=== PATIENT | female | born 2000 | race Caucasian/White ===

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

== ENCOUNTER 2019-09-06 09:25 | Outpatient (CLI) | payer OTHER, MEDICAID ==
[~2019-09-06] VITALS: Ht 175.3 cm; Wt 138.9 kg
--- NOTE | 2019-09-06 09:01 | NUR ---
WESTON CORREA presented to unit via AMBULATORY, with c/o VOMITTING, BLOATING, TIGHTNESS IN CHEST. WESTON CORREA weighed, gowned, voided, and to bed. VS taken. WESTON CORREA oriented to bed controls, call light, TV, heat, and A/C controls.
[~2019-09-06 09:25] MED LIST changes: +DOCU100C37 PO; +OXYC1TAB12 PO
--- NOTE | 2019-09-06 09:26 | NUR ---
DR. BENZ'S OFFICE CALLED, DR JAGDEEP MASCORRO. WILL CALL BACK FOR ORDERS.
--- NOTE | 2019-09-06 09:37 | NUR ---
DR. BENZ CALLED BACK, ORDERS RECEIVED.
[2019-09-06] MEDS ORDERED: D5 LR IV SOLUTION 1,000 ML IV SCH (09:45)
[2019-09-06] MEDS ORDERED: ONDANSETRON 4 MG/2 ML (SDV) Z0FRAN IVP ONE (09:45)
[2019-09-06] MEDS ORDERED: D5 LR IV SOLUTION 1,000 ML IV ONE (09:45)
[2019-09-06 10:01] VITALS: BP 121/79
--- NOTE | 2019-09-06 10:45 | NUR ---
PT TRANSFERRED OFF UNIT IN STABLE CONDITION VIA W/C ACC BY U/S STAFF.
[2019-09-06 10:57] LABS: BASOPHILS % (AUTO) 0 % (0-10); EOSINOPHILS % (AUTO) 0 % (0-10); HEMATOCRIT 39 % (35-52); HEMOGLOBIN 12.6 G/DL (11.5-16.0); LYMPHOCYTES # (AUTO) 1.5 X 10^3 (1.0-4.0); LYMPHOCYTES % (AUTO) 16 % (12-44); MEAN CORPUSCULAR HEMOGLOBIN 24 PG (25-34); MEAN CORPUSCULAR HGB CONC 33 G/DL (32-36); MEAN CORPUSCULAR VOLUME 73 FL (80-99); MONOCYTES # (AUTO) 0.4 X 10^3 (0.0-1.0); MONOCYTES % (AUTO) 5 % (0-12); NEUTROPHILS # (AUTO) 7.2 X 10^3 (1.8-7.8); NEUTROPHILS % (AUTO) 79 % (42-75); PLATELET COUNT 241 10^3/uL (130-400); RED CELL DISTRIBUTION WIDTH 15.6 % (10.0-14.5); WHITE BLOOD COUNT 9.2 10^3/uL (4.3-11.0)
[2019-09-06 10:58] LABS: BILIRUBIN,URINE NEGATIVE (NEGATIVE); CLARITY,URINE CLEAR; COLOR,URINE YELLOW; GLUCOSE, URINE (UA) NEGATIVE (NEGATIVE); KETONES,URINE NEGATIVE (NEGATIVE); LEUKOCYTE ESTERASE ,URINE NEGATIVE (NEGATIVE); NITRITE,URINE NEGATIVE (NEGATIVE); PH,URINE 8.5 (5-9); PROTEIN,URINE NEGATIVE (NEGATIVE)
[2019-09-06 11:08] LABS: BACTERIA,URINE TRACE /HPF
[2019-09-06 11:21] LABS: ALANINE AMINOTRANSFERASE < 6 U/L (0-55); ALBUMIN 4.1 GM/DL (3.2-4.5); ALKALINE PHOSPHATASE 88 U/L (40-136); BILIRUBIN,TOTAL 0.3 MG/DL (0.1-1.0); BUN/CREATININE RATIO 6; CALCIUM 9.4 MG/DL (8.5-10.1); CARBON DIOXIDE 19 MMOL/L (21-32); CHLORIDE 105 MMOL/L (98-107); CREATININE SERUM 0.69 MG/DL (0.60-1.30); GFR ESTIMATED > 60; GLUCOSE 88 MG/DL (70-105); POTASSIUM 3.8 MMOL/L (3.6-5.0); SODIUM 137 MMOL/L (135-145); TOTAL PROTEIN 7.5 GM/DL (6.4-8.2)
--- NOTE | 2019-09-06 11:21 | NUR ---
PT BACK TO UNIT. UP TO THE BATHROOM.
--- NOTE | 2019-09-06 11:56 | Diagnostic Imaging Report ---
PROCEDURE: US OB SINGLE FETUS <14 WKS. TECHNIQUE: Multiple real-time grayscale images were obtained over the gravid uterus in various projections. INDICATION: Evaluate for viable . FINDINGS: Uterus measures 11.0 x 6.0 x 6.4 cm. There is an intrauterine gestational sac containing a pole. [place]-rump length measurement is 2.4 cm consistent with approximately 9 weeks 1 day gestation. heart rate was recorded at 161 bpm. No [place]rael-gestational sac hemorrhage is detected. Gestational sac mean diameter is consistent with 9 weeks 3 days. Adnexa is unremarkable. No adnexal mass or free fluid is detected. IMPRESSION: Single live IUP and approximately 9 weeks 2 days gestational age. Estimated date of confinement sonographically is 04/08/2020. Dictated by: Dictated on workstation # [id number]
--- NOTE | 2019-09-06 11:58 | Diagnostic Imaging Report ---
INDICATION: Nausea and vomiting. PROCEDURE: Ultrasound abdomen complete. TECHNIQUE: Multiple real-time grayscale images were obtained of the abdomen in various projections. The liver is mildly enlarged 18.7 cm. No discrete liver mass is identified. Portal vein is patent and shows normal direction of flow. Gallbladder is without stones or sludge. No wall thickening or biliary ductal dilatation is identified. Pancreas was obscured by bowel gas. Spleen is normal in size at 10 cm. The abdominal aorta is nonaneurysmal. IVC is patent. Both right and left kidneys are without calculi or hydronephrosis. There is no ascites. IMPRESSION: Mild hepatomegaly. The study is otherwise unremarkable. Dictated by: Dictated on workstation # [id number]
--- NOTE | 2019-09-06 12:25 | NUR ---
DR. BENZ HERE. LABS AND ULTRASOUNDS REVIEWED. ORDERS RECEIVED TO ALLOW THE PT TO EAT AND THEN SHE CAN BE DISCHARGED HOME.
[2019-09-06 12:32] VITALS: BP 121/79
[2019-09-06 12:35] VITALS: BP 126/72
--- NOTE | 2019-09-06 13:15 | NUR ---
DISCHARGE PAPERS PROVIDED AND REVIEWED WITH PT, PT VERBALIZES UNDERSTANDING AND DENIES ANY QUESTIONS AT THIS TIME. PAPER SIGNED. IV DC'D. CATHETER TIP INTACT, SITE CLEAR. GAUZE AND BAND AID APPLIED OVER SITE.
--- NOTE | 2019-09-06 13:19 | NUR ---
PT DISCHARGED FROM -301 TO [facility] VIA AMBULATORY IN STABLE CONDITION. BELONGINGS IN HAND.
--- NOTE | 2019-09-07 08:55 | Physician Query-Final Dx ---
GIL FISHER 09/07/19 0855: Clinic Account Progress/Dx Physician Query: Please give diagnosis Please include # weeks gestation Date of Service Sep 06, 2019 at 09:25 DEEJAY BENZ MD 09/08/19 0800: Clinic Account Progress/Dx DIAGNOSIS: Diagnosis Hyperemesis gravidarum at 6 weeks gestation GIL FISHER Sep 07, 2019 08:55 DEEJAY BENZ MD Sep 08, 2019 08:00
== END 2019-09-06 13:19 | disposition home or self-care (01) ==
LOC: WSo 09:25 → LDRP 09:25 → WSo 13:19
PROVIDERS: ATTEND Obstetrics & Gynecology
DX: O21.9 Vomiting of pregnancy, unspecified (principal); O26.891 Other specified pregnancy related conditions, first trimester; R14.0 Abdominal distension (gaseous); R07.89 Other chest pain; Z3A.09 9 weeks gestation of pregnancy
CPT/HCPCS: 36415; 76700; 76801; 80053; 81000; 85025; 87088; 96360; 96361; 99213

== ENCOUNTER 2020-03-06 08:30 | Inpatient (IN) | payer BC, MEDICAID ==
[~2020-03-06] VITALS: Ht 175.3 cm; Wt 134.3 kg
[~2020-03-06 08:30] MED LIST changes: -OXYC-465 PO; +OXYC-556 PO
[2020-04-05] VITALS (10 sets, daily range): BP systolic 108–142; BP diastolic 55–78
--- NOTE | 2020-04-05 10:13 | NUR ---
WESTON CORREA presented to unit via ambulation from ED, accompanied by s/o ,for scheduled repeat c/s. Pt. weighed, gowned, voided, and to bed. EFHM and TOCO applied, VS taken. Pt. oriented to bed controls, call light, TV, heat, and A/C controls.
[2020-04-05] MEDS ORDERED: metroNIDAZOLE 500MG/100ML IVPB 100 ML IV ONE (10:15)
[2020-04-05] MEDS ORDERED: CITRIC ACID/SOB CIT (BICITRA) 30 ML UDC PO ONE (10:15)
[2020-04-05] MEDS ORDERED: LACTATED RINGERS 1,000 ML IV PRN (10:15)
[2020-04-05] MEDS ORDERED: FAMOTIDINE 20MG/2ML IV (PEPCID) IV ONE (10:15)
[2020-04-05] MEDS ORDERED: METOCLOPRAMIDE INJ 10 MG/2 ML (REGLAN) IV ONE (10:15)
[2020-04-05] MEDS ORDERED: ceFAZolin 2 GM IV Premixed 50 ML IV ONE (10:15)
--- NOTE | 2020-04-05 10:47 | NUR ---
#20g IV to Lt.hand x2 attempts by this RN. site patent, secured with opsite. LR 1 liter infusing via gravity. see eMar for further.
[2020-04-05 11:16] LABS: BASOPHILS % (AUTO) 0 % (0-10); EOSINOPHILS % (AUTO) 0 % (0-10); HEMATOCRIT 34 % (35-52); LYMPHOCYTES # (AUTO) 1.7 10^3/uL (1.0-4.0); LYMPHOCYTES % (AUTO) 21 % (12-44); MEAN CORPUSCULAR HEMOGLOBIN 24 pg (25-34); MEAN CORPUSCULAR HGB CONC 32 g/dL (32-36); MEAN CORPUSCULAR VOLUME 74 fL (80-99); MEAN PLATELET VOLUME 11.6 fL (9.0-12.2); MONOCYTES # (AUTO) 0.4 10^3/uL (0.0-1.0); MONOCYTES % (AUTO) 5 % (0-12); NEUTROPHILS % (AUTO) 73 % (42-75); PLATELET COUNT 167 10^3/uL (130-400); WHITE BLOOD COUNT 8.1 10^3/uL (4.3-11.0)
[2020-04-05] MEDS ORDERED: OXYTOCIN PRE-MIX DRIP 500 ML IV ONE ×2 (11:18→12:30)
[2020-04-05] MEDS ORDERED: fentaNYL INJECTION 100 MCG/2 ML AMP ONE (11:19)
[2020-04-05] MEDS: LACTATED RINGERS 1,000 ML IV PRN ×2 (11:22→12:30)
--- NOTE | 2020-04-05 11:42 | NUR ---
monitors off. pt ambulated to OB c/s room with OR staff @ side.
[2020-04-05] MEDS ORDERED: ONDANSETRON 4 MG/2 ML (SDV) Z0FRAN ONE (12:20)
[2020-04-05] MEDS ORDERED: BUPIVACAINE 0.5% 30 ML (SENSORCAINE) VIAL ONE (12:30)
[2020-04-05] MEDS ORDERED: PHENYLEPHRINE 100 MCG/ML 10 ML (ANESTHESIA) SYR ONE (12:36)
[2020-04-05] MEDS ORDERED: D5 LR IV SOLUTION 1,000 ML IV SCH (12:40)
[2020-04-05] MEDS ORDERED: MEASLES,MUMPS,RUBELLA 1 EA INJ SC ONE (12:45)
[2020-04-05] MEDS ORDERED: TETANUS,DIPTH,PERTUSS P/F (BOOSTRIX) 0.5 ML VIAL IM ONE (12:45)
[2020-04-05] MEDS ORDERED: ONDANSETRON 4 MG/2 ML (SDV) Z0FRAN IVP PRN (12:45)
[2020-04-05] MEDS: KETOROLAC 30 MG/ML VIAL IVP SCH ×2 (12:56→20:31)
[2020-04-05] MEDS ORDERED: CATHETER FLUSH 10 ML SYR IV PRN (13:00)
[2020-04-05] MEDS ORDERED: FLU QUADRIvalent (3YOA+) 60 mcg/0.5 ml 2020-21 (AFLURIA) IM ONE (13:30)
--- NOTE | 2020-04-05 14:20 | NUR ---
FFu/0. lt-moderate rubra noted, no clots expressed. is[place]-care offered. v-pad in place.
--- NOTE | 2020-04-05 14:25 | NUR ---
pt transferred to room 307 via bed with this RN, and s/o @ side. pt stable with no sx's of distress noted.
[2020-04-05] MEDS: OXYTOCIN PRE-MIX DRIP 500 ML IV SCH ×2 (14:33→18:33)
[2020-04-05] MEDS ORDERED: SIMETHICONE 80 MG (MYLICON) CHEW ONE (16:40)
[2020-04-05] MEDS: SIMETHICONE 80 MG (MYLICON) CHEW PO PRN (16:44)
[2020-04-05] MEDS: oxyCODONE/APAP 10/325MG (PERCOCET 10) TABLET PO PRN ×2 (16:45→20:56)
--- NOTE | 2020-04-05 18:20 | NUR ---
assisted up to BR. void 200cc urine without difficulty. israel-care instructions given, returned demonstration. v-pad and panties in place.
--- NOTE | 2020-04-05 18:38 | NUR ---
ambulating in hallways with s/o and infant @ side.
--- NOTE | 2020-04-05 19:21 | NUR ---
report given to next shift.
[2020-04-05] MEDS ORDERED: DOCUSATE SODIUM 100 MG (COLACE) CAP PO SCH (21:00)
--- NOTE | 2020-04-05 21:28 | OPERATIVE REPORT ---
DATE OF SERVICE: 04/05/2020 PREOPERATIVE DIAGNOSES: Term with oligohydramnios and morbid obesity, and previous . POSTOPERATIVE DIAGNOSES: Term with oligohydramnios and morbid obesity, and previous . OPERATIVE PROCEDURE: Repeat low transverse delivery of a viable male with Apgars of 9 and 9 at 1 and 5 minutes respectively, weight of 8 pounds and 13 ounces. Cord blood pH of 7.29 and a time of 12:15. OPERATIVE DESCRIPTION: With the patient in the supine position under satisfactory spinal anesthesia, the patient was prepped and draped in the usual fashion for abdominal surgery. Saenz catheter was placed in the urinary bladder. A Pfannenstiel incision was made through skin with scalpel, the patient's abdomen entered in the usual manner. Bladder retractor placed in position, clean scalpel used to make a 4 cm hysterotomy incision transversely across the lower uterine segment that was extended by blunt dissection, releasing a small amount of amniotic fluid. Linder forceps were applied to facilitate the delivery of the vigorous viable male . The infant had Apgars and stats as noted above. There was a single nuchal cord that was easily released. The was bulb suctioned on delivery of the head and again on completion of delivery. Umbilical cord was doubly clamped and cut and the passed to the pediatric nurse in attendance for delivery. Cord bloods were obtained. The placenta delivered partially spontaneously and partially manually as I did not want to release completely. It was sent to pathology for permanent section. The uterus was exteriorized and interior wiped clean with a wet laparotomy sponge. Uterine incision closed with a running locked suture of 2-0 Vicryl. Hemostasis was complete. The uterus was returned to abdominal cavity. All blood clot and debris removed from the abdominal cavity. Abdominal cavity was explored. There were no abnormal findings. On manual exploration. The anterior parietal peritoneum was then closed with running suture of 2-0 Vicryl. Rectus muscles were closed with that suture as well. The rectus fascia was closed with 2-0 Vicryl, subcutaneous tissue was closed with 2-0 Vicryl and the skin was stapled. Sponge and needle counts were correct on completion of procedure. Estimated blood loss was 500 mL. The patient tolerated the procedure well and was transferred to the recovery room in stable condition. The infant had been taken stable to the full term nursery under the care of the pediatric nurse. Job ID: [id number] DocumentID: [id number] Dictated Date: 04/05/2020 12:43:16 Roller Setter Date: 04/05/2020 21:28:20 Dictated By: DEEJAY BENZ MD
[2020-04-06] VITALS (7 sets, daily range): BP systolic 92–117; BP diastolic 51–60
[2020-04-06] MEDS: oxyCODONE/APAP 10/325MG (PERCOCET 10) TABLET PO PRN ×2 (02:37→13:35)
[2020-04-06] MEDS: KETOROLAC 30 MG/ML VIAL IVP SCH ×2 (02:37→19:21)
[2020-04-06] MEDS: DOCUSATE SODIUM 100 MG (COLACE) CAP PO SCH ×2 (02:40→21:38)
--- NOTE | 2020-04-06 06:35 | Anesthesia-Regional Post-Op ---
Regional Patient Condition Mental Status: Alert, Oriented x3 Circulation: Same as Pre-Op Headache: Absent Sensation: Full Recovery Motor Block: Absent Post Op Complications Complications None Follow Up Care/Instructions Patient Instructions None needed. Anesthesia/Patient Condition Patient is doing well, no complaints, stable vital signs, no apparent adverse anesthesia problems. No complications reported per nursing. D/C home per [facility] Criteria: No REBECCA TEMPLE CRNA Apr 06, 2020 06:35
[2020-04-06] MEDS ORDERED: IBUPROFEN 800 MG (MOTRIN) TAB PO ONE (08:01)
[2020-04-06] MEDS: IBUPROFEN SUSP 100MG/5ML (MOTRIN) UDC PO PRN ×3 (08:47→21:38)
--- NOTE | 2020-04-06 08:47 | NUR ---
RN to room for VS and assessment. VSS. Incision site CHRISTOPHER, with no drainage, redness or swelling. Mother reports feeling "fine", light rubra lochia reported, with no clots reported. Mother denies any needs or concerns at this time.
--- NOTE | 2020-04-06 09:10 | NUR ---
nurse to room to assist with
--- NOTE | 2020-04-06 10:05 | Progress Note ---
Standard Progress Note Progress Notes/Assess & Plan Date Seen by a Provider: Apr 06, 2020 Time Seen by a Provider: 10:04 Progress/Assessment & Plan this patient is without complaint. She is ambulating, voiding, tolerating oral intake well has good pain control. Vital Signs Date Time Temp Pulse Resp B/P (MAP) Pulse Ox O2 Delivery O2 Flow Rate FiO2 04/06/20 08:47 36.3 59 18 109/52 (71) 98 04/06/20 03:30 36.5 66 18 112/60 (77) 98 Room Air 04/06/20 00:30 36.7 60 18 117/57 (77) 98 Room Air 04/05/20 20:56 36.8 63 18 117/62 (80) 98 Room Air 04/05/20 16:45 36.5 77 18 120/55 (76) 98 Room Air 04/05/20 13:35 35.9 18 112/78 (89) 98 Room Air 04/05/20 13:20 36.1 55 18 108/71 (83) 98 Room Air 04/05/20 13:20 36.1 18 108/71 (83) 97 Room Air 04/05/20 13:05 36.3 18 110/62 (78) 98 Room Air 04/05/20 12:47 37.2 18 110/57 (74) 97 Room Air 04/05/20 12:43 37.3 95 20 90 Room Air 04/05/20 11:35 78 18 142/67 (92) Room Air 04/05/20 11:20 74 18 132/61 (84) Room Air 04/05/20 10:20 37.3 95 20 129/68 (88) 90 Room Air I & O 04/06/20 07:00 Intake Total 5950 ml Output Total 750 ml Balance 5200 ml Vital signs are stable. Patient is afebrile. The abdomen is benign. Fundus is firm below the umbilicus nontender. EXTREMITIES SHOW NO CLUBBING OR cyanosis. There is no Homans sign. Assessment and plan postoperative day number 1 status post repeat delivery doing well. Plan is for routine convalescence care today and consider discharge home tomorrow Final Diagnosis 38 WEEK REPEAT DELIVERY DEEJAY BENZ MD Apr 06, 2020 10:05
[2020-04-06] MEDS ORDERED: DCS100C PO (10:07)
[2020-04-06] MEDS ORDERED: IBP100U5 PO (10:07)
[2020-04-06] MEDS ORDERED: OXYC1TAB12 PO (10:07)
--- NOTE | 2020-04-06 10:08 | Discharge Inst-Surgical ---
Discharge Inst-Surgical Depart Medication/Instructions New, Converted or Re-Newed RX: RX on Chart Consults/Follow Up Patient Instructions: as directed Orders & Referrals Follow Up Appt: RTC 1 week for incision check. Call to make follow up appt. for patient in 4 weeks. Wound Care: Remove zina, apply benzoin and steri strips. Activity Per routine post instructions. Please call in RX to patient pharmacy. Diet as tolerated Patient may shower or tub bathe as desired. Continue home meds Activity Activity as Tolerated: No Diet Discharge Diet: No Restrictions DEEJAY BENZ MD Apr 06, 2020 10:08
--- NOTE | 2020-04-06 12:10 | NUR ---
Student nurse to room for VS, BP noted to be lower than pts normal. RN to room to check on pt. Pt resting in bed with infant, reports being "very tired". Pt reports feeling fine with no dizziness or diaphoresis. Bleeding assessed, light rubra lochia noted with no clots. Will continue to monitor. Pt denies any needs or concerns at this time
[2020-04-06] MEDS ORDERED: IBUPROFEN 800 MG (MOTRIN) TAB PO SCH (12:45)
--- NOTE | 2020-04-06 14:45 | NUR ---
Student nurse to room. Pt complaining of being "really hot". RN to room to assess pt. VS taken, stable. Bleeding assessed, light rubra lochia noted. Will continue to monitor. Fan turned on for pt at this time. Pt denies any needs or concerns at this time.
--- NOTE | 2020-04-06 15:03 | NUR ---
RN to room to give motrin. Pt reports feeling better after the fan was on. Denies any needs or concerns at this time
--- NOTE | 2020-04-06 20:15 | NUR ---
Pt sitting up in rocker holding at this time, plan of care reviewed, denies needs.
[2020-04-07 03:40] VITALS: BP 123/59
[2020-04-07] MEDS: IBUPROFEN SUSP 100MG/5ML (MOTRIN) UDC PO PRN ×2 (03:43→09:54)
[2020-04-07] MEDS: oxyCODONE/APAP 10/325MG (PERCOCET 10) TABLET PO PRN ×2 (03:46→09:52)
--- NOTE | 2020-04-07 07:49 | Progress Note ---
Standard Progress Note Progress Notes/Assess & Plan Date Seen by a Provider: Apr 07, 2020 Time Seen by a Provider: 07:48 Progress/Assessment & Plan this patient is without complaint. She is ambulating, voiding, tolerating oral intake well has good pain control. Vital Signs Date Time Temp Pulse Resp B/P (MAP) Pulse Ox O2 Delivery O2 Flow Rate FiO2 04/06/20 08:47 36.3 59 18 109/52 (71) 98 04/06/20 03:30 36.5 66 18 112/60 (77) 98 Room Air 04/06/20 00:30 36.7 60 18 117/57 (77) 98 Room Air 04/05/20 20:56 36.8 63 18 117/62 (80) 98 Room Air 04/05/20 16:45 36.5 77 18 120/55 (76) 98 Room Air 04/05/20 13:35 35.9 18 112/78 (89) 98 Room Air 04/05/20 13:20 36.1 55 18 108/71 (83) 98 Room Air 04/05/20 13:20 36.1 18 108/71 (83) 97 Room Air 04/05/20 13:05 36.3 18 110/62 (78) 98 Room Air 04/05/20 12:47 37.2 18 110/57 (74) 97 Room Air 04/05/20 12:43 37.3 95 20 90 Room Air 04/05/20 11:35 78 18 142/67 (92) Room Air 04/05/20 11:20 74 18 132/61 (84) Room Air 04/05/20 10:20 37.3 95 20 129/68 (88) 90 Room Air I & O 04/06/20 07:00 Intake Total 5950 ml Output Total 750 ml Balance 5200 ml Vital signs are stable. Patient is afebrile. The abdomen is benign. Fundus is firm below the umbilicus nontender. EXTREMITIES SHOW NO CLUBBING OR cyanosis. There is no Homans sign. Assessment and plan postoperative day number 1 status post repeat delivery doing well. Plan is for routine convalescence care today and consider discharge home tomorrow April 07, 2020 Patient is without complaint. She is ambulating, voiding, tolerating oral intake well and has good pain control. Patient is requesting discharge home. Vital Signs Date Time Temp Pulse Resp B/P (MAP) Pulse Ox O2 Delivery O2 Flow Rate FiO2 04/07/20 03:40 36.3 61 18 123/59 (80) Room Air 04/06/20 21:30 36.1 65 18 115/58 (77) 98 Room Air 04/06/20 14:45 36.6 54 18 95/55 (68) 98 Room Air 04/06/20 12:10 36.2 52 18 92/51 (65) Room Air 04/06/20 08:47 36.3 59 18 109/52 (71) 98 vital signs are stable. Patient is afebrile. Fundus is firm below the umbilicus and nontender.the incision is clean dry and intact. Extremities show no clubbing cyanosis. There is no Homans sign. There is some pretibial pitting edema that is normal. assessment and plan postoperative day number 1 status post repeat delivery doing well. Plan is for discharge home with follow-up in clinic Final Diagnosis 38 week repeat delivery DEEJAY BENZ MD Apr 07, 2020 07:49
[2020-04-07 09:45] VITALS: BP 108/59
[2020-04-07] MEDS: SIMETHICONE 80 MG (MYLICON) CHEW PO PRN (09:50)
[2020-04-07] MEDS: DOCUSATE SODIUM 100 MG (COLACE) CAP PO SCH (09:54)
--- NOTE | 2020-04-07 10:45 | NUR ---
Eva removed, steristrips placed with mccarthy spray. Circumcision care education given/demonstrated to parents on at diaper change. Discharge instructions given. Pt understands that she is no longer a pt. Pt understands not to leave until infant DC instructions have been given. Questions answered. RX placed in red folder.
== END 2020-04-07 12:15 | disposition home or self-care (01) | DRG 787 ==
LOC: LDRP 04-05 10:04
PROVIDERS: ADMIT Obstetrics & Gynecology; ATTEND Obstetrics & Gynecology
PROC: 10D00Z1 Extraction of Products of Conception, Low, Open Approach (ICD-10-PCS; principal; 2020-04-05 11:45)
DX: O34.211 Maternal care for low transverse scar from previous cesarean delivery (principal); O41.03X0 Oligohydramnios, third trimester, not applicable or unspecified; Z37.0 Single live birth; O99.214 Obesity complicating childbirth; Z3A.38 38 weeks gestation of pregnancy; E66.9 Obesity, unspecified
CPT/HCPCS: 36415; 85025; 86850; 86900; 86901; 88307; 90686; 90715

== ENCOUNTER 2020-03-20 20:01 | Outpatient (CLI) | payer MEDICAID ==
[~2020-03-20] VITALS: Ht 175.3 cm; Wt 136.9 kg
--- NOTE | 2020-03-20 20:06 | NUR ---
WESTON CORREA presented to unit via ambulation from ED, unaccompanied, with c/o VAGINAL PAIN;LOW BACK PAIN. WESTON CORREA weighed, gowned, voided, and to bed. EFHM and TOCO applied, VS taken. WESTON CORREA oriented to bed controls, call light, TV, heat, and A/C controls.
[2020-03-20 20:15] VITALS: BP 139/72
[2020-03-20 20:23] VITALS: BP 141/71
[2020-03-20 20:33] VITALS: BP 142/71
[2020-03-20 21:10] LABS: BILIRUBIN,URINE NEGATIVE (NEGATIVE); CLARITY,URINE CLEAR; COLOR,URINE YELLOW; GLUCOSE, URINE (UA) NEGATIVE (NEGATIVE); KETONES,URINE NEGATIVE (NEGATIVE); LEUKOCYTE ESTERASE ,URINE TRACE (NEGATIVE); NITRITE,URINE NEGATIVE (NEGATIVE); PH,URINE 6.5 (5-9); PROTEIN,URINE NEGATIVE (NEGATIVE)
[2020-03-20 21:33] LABS: BACTERIA,URINE TRACE /HPF
[2020-03-20 21:34] LABS: AMORPHOUS SEDIMENT,UR FEW AMOR URATES /LPF
--- NOTE | 2020-03-20 21:49 | NUR ---
D/C instructions given & explained, pt. verbalized understanding & signed, copy of D/C instructions to pt. Pt. left WS on own, to home via private vehicle.
--- NOTE | 2020-03-21 08:33 | Physician Query-Final Dx ---
GIL FISHER 03/21/20 0833: Clinic Account Progress/Dx Physician Query: Please give diagnosis Please include # weeks gestation Date of Service Mar 20, 2020 at 20:01 DEEJAY BENZ MD 03/21/20 0935: Clinic Account Progress/Dx DIAGNOSIS: Diagnosis false labor at 36 weeks GIL FISHER Mar 21, 2020 08:33 DEEJAY BENZ MD Mar 21, 2020 09:35
== END 2020-03-20 21:49 | disposition home or self-care (01) ==
LOC: WSo 20:01 → LDRP 20:01 → WSo 21:49
PROVIDERS: ATTEND Obstetrics & Gynecology
DX: O26.893 Other specified pregnancy related conditions, third trimester (principal); Z3A.36 36 weeks gestation of pregnancy
CPT/HCPCS: 81000; 87088; G0463; 99213

== ENCOUNTER 2020-04-03 05:32 | Outpatient (RCR) | payer MEDICAID, OTHER ==
[~2020-04-03] VITALS: Ht 175 cm; Wt 136.3 kg
--- NOTE | 2020-04-05 08:16 | History & Physical ---
History and Physical Date Seen by Provider: Apr 05, 2020 this patient is a 2 para one 1 white female is complicated by morbid obesity who is admitted now for repeat delivery. Her is complicated by her morbid obesity and excessive fundal height and intolerance of . She denies rupture membranes or bleeding. GBS culture was negative Allergies are none Medications are vitamins Medical social and surgical histories are per the antepartum record HEENT exam is normal Neck is supple no lymphadenopathy no thyromegaly Abdomen is gravid soft nontender nondistended morbidly obese Extremities show no clubbing cyanosis. There is no Homans sign. Pelvic exam is deferred Assessment and plan term 38+ weeks gestation complicated by morbid obesity and intolerance plan is for repeat delivery today Allergies and Home Medications Allergies Coded Allergies: No Known Drug Allergies (Unverified , 03/31/20) Home Medications No Active Prescriptions or Reported Meds DEEJAY BENZ MD Apr 05, 2020 08:16
== END 2020-04-03 09:28 | disposition home or self-care (01) ==
LOC: PREOP 05:32 → EDSTATUS 13:00
PROVIDERS: ATTEND Obstetrics & Gynecology
DX: Z01.812 Encounter for preprocedural laboratory examination (principal); Z20.828 Contact with and (suspected) exposure to other viral communicable diseases
CPT/HCPCS: 87635

== ENCOUNTER → 2021-06-26 | Outpatient (CLI) | payer OTHER, MEDICAID ==
[~2021-06-26] MED LIST changes: +DOCU-239 PO; -ESCI5TAB12 PO; +ESCI5TAB16 PO; +IBP100U5 PO
--- NOTE | 2021-06-26 11:19 | Diagnostic Imaging Report ---
EXAM: First Trimester Ultrasound. INDICATIONS: Age by LMP is 8 weeks, 0 days. TECHNIQUE: The pelvis was scanned using transabdominal and endovaginal technique. COMPARISON: None. FINDINGS: Endovaginal sonography demonstrates an intrauterine gestational sac with a pole. A normal appearing secondary yolk sac is identified. The appearance of the embryo and gestation is normal for age. No definitive heart activity is seen. Both ovaries were identified and appear normal. The left measures 2.5 x 1.7 x 1.9 cm, and the right 2.9 x 2.1 x 2.0 cm. There is a 1.5 cm hyperechoic lesion within the left adnexa adjacent to the left ovary. No free fluid. biometry: [place] rump length 0.4 cm: 6 weeks, 1 days. IMPRESSION: 1. Intrauterine gestational sac with a pole. No definitive heart activity is seen. These findings are compatible with an intrauterine gestation of uncertain viability. Recommend followup ultrasound in 11 days. 2. Left adnexal hyperechoic lesion is indeterminate but could represent a corpus luteum cyst or dermoid. Recommend attention on followup ultrasound. Dictated by: Dictated on workstation # [id number]
== END ==
LOC: RAD 10:00
PROVIDERS: ATTEND Obstetrics & Gynecology
DX: Z32.01 Encounter for pregnancy test, result positive (principal); R19.09 Other intra-abdominal and pelvic swelling, mass and lump
CPT/HCPCS: 76801; 76817

== ENCOUNTER → 2021-07-05 | Outpatient (CLI) | payer OTHER, MEDICAID ==
--- NOTE | 2021-07-05 12:41 | Diagnostic Imaging Report ---
Indication: Uncertain dates. There is a single live IUP measuring 6 weeks 5 days gestational age. heart rate was recorded at 132 bpm. No [place]-gestational sac hemorrhage is detected. There is echogenic focus left ovary approximately 15 mm in size. This could potentially represent a fatty lesion such as a dermoid. Follow-up would be recommended. There is no free fluid. IMPRESSION: 1. Single live IUP 6 weeks 5 days gestational age. Estimated date of confinement sonographically is 02/23/2022. 2. Echogenic lesion left ovary, as described. Follow-up would be recommended. Dictated by: Dictated on workstation # [id number]
== END ==
LOC: RAD 10:00
PROVIDERS: ATTEND Obstetrics & Gynecology
DX: Z34.81 Encounter for supervision of other normal pregnancy, first trimester (principal); Z3A.01 Less than 8 weeks gestation of pregnancy
CPT/HCPCS: 76801; 76817

== ENCOUNTER 2021-11-09 16:44 | Emergency (ER) | payer OTHER, MEDICAID ==
[~2021-11-09] VITALS: Ht 170 cm; Wt 136.0 kg
--- NOTE | 2021-11-09 17:11 | ED Chest Pain ---
General Chief Complaint: Chest Pain Stated Complaint: CHEST PAIN Nursing Triage Note: PT PRESENTED TO [facility] TODAY W/ C/O CP. PT NOTED TO BE IN ATRIAL FIBRILLATION AND SHE WAS REFERRED TO THE ER FOR ADDITIONAL CARE. PT C/O INTERMITTENT "THROBBING" IN CENTER OF CHEST. PT DENIES PREVIOUS CARDIAC HX. PT IS APPROX 26 WEEKS . Source: patient Exam Limitations: no limitations (АЛЕКСАНДР CISNEROS MD) History of Present Illness Date Seen by Provider: November 09, 2021 Time Seen by Provider: 16:55 Initial Comments 21-year-old female that is roughly 26 weeks with otherwise no pertinent past medical history coming in due to 13 hours of constant chest pain on the right side of her chest. She says it is a throbbing pain, intermittent to sometimes mild. She is never had pain like this before. Denies any swelling in her legs or pain, no hemoptysis, no prior DVT or PE, no hormone use, no recent travel, no recent surgeries. She has not tried anything for the pain as of yet. She is otherwise denying any other acute complaints. In regards to her , she has had a normal thus far, no vaginal bleeding, she feels baby move, no loss of fluid like her water has broken, and no abdominal pain (АЛЕКСАНДР CISNEROS MD) Allergies and Home Medications Allergies Coded Allergies: No Known Drug Allergies (Unverified , 03/31/20) Patient Home Medication List Home Medication List Reviewed: Yes (АЛЕКСАНДР CISNEROS MD) Docusate Sodium (Dok) 100 Mg Capsule, 100 MG PO BID Prescribed by: DEEJAY GATICA on 04/06/201006 Ibuprofen (Ibuprofen) 100 Mg/5 Ml Oral.susp, 800 MG PO Q6H PRN for PAIN-MILD (1- 4) Prescribed by: DEEJAY GATICA on 04/06/20 1007 Oxycodone HCl/Acetaminophen (Percocet 10-325 mg Tablet) 1 Each Tablet, 1 TAB PO Q4HR PRN for PAINMODS Prescribed by: DEEJAY GATICA on 04/06/20 1007 Review of Systems Review of Systems Constitutional: No fever EENTM: No Blurred Vision Respiratory: Denies Cough, Denies Shortness of Air Cardiovascular: Chest Pain Gastrointestinal: Denies Abdominal Pain Genitourinary: No Symptoms Reported Musculoskeletal: no symptoms reported Skin: no symptoms reported Psychiatric/Neurological: No Symptoms Reported Endocrine: No Symptoms Reported Hematologic/Lymphatic: No Symptoms Reported (АЛЕКСАНДР CISNEROS MD) All Other Systems Reviewed Negative Unless Noted: Yes (АЛЕКСАНДР CISNEROS MD) Past Pdfbnji-Zdlvfk-Mobsin Hx Patient Social History Tobacco Use?: No Substance use?: No Alcohol Use?: No Pt feels they are or have been: No (АЛЕКСАНДР CISNEROS MD) Immunizations Up To Date Tetanus Booster (TDap): Less than 5yrs (АЛЕКСАНДР CISNEROS MD) Seasonal Allergies Seasonal Allergies: No (АЛЕКСАНДР CISNEROS MD) Past Medical History Surgery/Hospitalization HX: PT DENIES PMH Surgeries: Yes Respiratory: No Cardiac: No Neurological: No Expected Date of Delivery: Feb 18, 2022 Sexually Transmitted Disease: No HIV/AIDS: No Genitourinary: Yes UTI-Chronic Gastrointestinal: No Chronic Constipation, Chronic Diarrhea Musculoskeletal: No Endocrine: No HEENT: No Loss of Vision: Denies Hearing Impairment: Denies Cancer: No Psychosocial: Yes Anxiety Integumentary: No Blood Disorders: No Adverse Reaction/Blood Tranf: No (N/A) (АЛЕКСАНДР CISNEROS MD) Family Medical History Diabetes mellitus 19 MOTHER FH: heart disease 19 FATHER Hypertension 19 MOTHER Physical Exam Vital Signs Vital Signs - First Documented 11/09/21 16:51 Pulse 84 Resp 18 B/P (MAP) 152/88 (109) Pulse Ox 100 O2 Delivery Room Air (VAUGHN,LEATHA K ) Vital Signs Capillary Refill : Less Than 3 Seconds (АЛЕКСАНДР CISNEROS MD) Height, Weight, BMI Height: 5'6.00" Weight: 302lbs. 0.6oz. 137.556154wd; 47.00 BMI Method:Estimated (АЛЕКСАНДР CISNEROS MD) Procedures/Interventions Suture Size: 5-0 (АЛЕКСАНДР CISNEROS MD) Progress/Results/Core Measures Results/Orders Lab Results Laboratory Tests Test 11/09/21 17:05 11/09/21 17:50 Range/Units White Blood Count 10.5 4.3-11.0 10^3/uL Red Blood Count 4.34 3.80-5.11 10^6/uL Hemoglobin 11.4 L 11.5-16.0 g/dL Hematocrit 34 L 35-52 % Mean Corpuscular Volume 78 L 80-99 fL Mean Corpuscular Hemoglobin 26 25-34 pg Mean Corpuscular Hemoglobin Concent 34 32-36 g/dL Red Cell Distribution Width 13.4 10.0-14.5 % Platelet Count 173 130-400 10^3/uL Mean Platelet Volume 10.5 9.0-12.2 fL Immature Granulocyte % (Auto) 0 % Neutrophils (%) (Auto) 70 42-75 % Lymphocytes (%) (Auto) 23 12-44 % Monocytes (%) (Auto) 6 0-12 % Eosinophils (%) (Auto) 1 0-10 % Basophils (%) (Auto) 0 0-10 % Neutrophils # (Auto) 7.4 1.8-7.8 10^3/uL Lymphocytes # (Auto) 2.4 1.0-4.0 10^3/uL Monocytes # (Auto) 0.6 0.0-1.0 10^3/uL Eosinophils # (Auto) 0.1 0.0-0.3 10^3/uL Basophils # (Auto) 0.0 0.0-0.1 10^3/uL Immature Granulocyte # (Auto) 0.0 0.0-0.1 10^3/uL Prothrombin Time 13.3 12.2-14.7 SEC INR Comment 1.0 0.8-1.4 Activated Partial Thromboplast Time 28 24-35 SEC D-Dimer 1.09 H 0.00-0.49 UG/ML Sodium Level 137 135-145 MMOL/L Potassium Level 3.3 L 3.6-5.0 MMOL/L Chloride Level 107 98-107 MMOL/L Carbon Dioxide Level 20 L 21-32 MMOL/L Anion Gap 10 5-14 MMOL/L Blood Urea Nitrogen 5 L 7-18 MG/DL Creatinine 0.57 L 0.60-1.30 MG/DL Estimat Glomerular Filtration Rate 132 BUN/Creatinine Ratio 9 Glucose Level 102 70-105 MG/DL Calcium Level 9.0 8.5-10.1 MG/DL Corrected Calcium 9.5 8.5-10.1 MG/DL Magnesium Level 1.6 1.6-2.4 MG/DL Total Bilirubin 0.4 0.1-1.0 MG/DL Aspartate Amino Transf (AST/SGOT) 12 5-34 U/L Alanine Aminotransferase (ALT/SGPT) < 6 0-55 U/L Alkaline Phosphatase 90 40-136 U/L Troponin I < 0.028 <0.028 NG/ML B-Type Natriuretic Peptide 16.4 <100.0 PG/ML Total Protein 6.8 6.4-8.2 GM/DL Albumin 3.4 3.2-4.5 GM/DL SARS-CoV-2 RNA (RT-PCR) Detected H Not Detecte (LEATHA CHESTER DO) My Orders Orders - LEATHA CHESTER DO Iohexol Injection (Omnipaque 350 Mg/Ml 1 (11/09/21 18:00) Received Contrast (Hold Metformin- Contr (11/09/21 18:00) Sodium Chloride Flush (Catheter Flush Sy (11/09/21 18:00) Ns (Ivpb) (Sodium Chloride 0.9% Ivpb Bag (11/09/21 18:00) Bebtelovimab (Bebtelovimab) (11/09/21 19:00) Epinephrine 1 Mg Injection (Adrenalin I (11/09/21 19:00) Diphenhydramine Injection (Benadryl Inje (11/09/21 19:00) Ondansetron Injection (Zofran Injectio (11/09/21 19:00) Acetaminophen Tablet (Tylenol Tablet) (11/09/21 19:00) (LEATHA CHESTER DO) Medications Given in ED Current Medications Medications Dose Ordered Sig/Tanvi Route Start Time Stop Time Status Last Admin Dose Admin Bebtelovimab 175 mg ONCE ONCE IV 11/09/21 19:00 11/09/21 19:01 DC 11/09/21 19:10 175 MG Iohexol 100 ml ONCE ONCE IV 11/09/21 18:00 11/09/21 18:01 DC 11/09/21 18:03 88 ML Sodium Chloride 10 ml NEEDED PRN IV 11/09/21 18:00 11/09/21 18:03 10 ML Sodium Chloride 100 ml ONCE ONCE IV 11/09/21 18:00 11/09/21 18:01 DC 11/09/21 18:03 80 ML (LEATHA CHESTER DO) Vital Signs/I&O 11/09/21 16:51 Pulse 84 Resp 18 B/P (MAP) 152/88 (109) Pulse Ox 100 O2 Delivery Room Air (VAUGHNLEATHA Saavedra Artemio MCKOY) Blood Pressure Mean: 109 Progress Progress Note : Progress Note 21-year-old female with above history coming in due to chest pain. ABCs were intact and vitals were stable on presentation. Physical exam reassuring with no focal abnormalities. [id number] ultrasound obtained, and there is good heart rate and normal movement. EKG without acute ischemic changes although she does have PACs. An IV was placed and basic labs were obtained including cardiac biomarkers. Troponin negative, D-dimer greater than 1. I discussed the risk of a PE with the patient, given the D-dimer being this elevated I would recommend a CTA. Especially given her heart rates is often greater than 100. I discussed the risk of radiation to the fetus and with new CT scan protocols this risk is relatively low compared to previous years. I discussed that with a CT abdomen pelvis that would be about a 1 and 1000 risk increase chance of cancer for the fetus, and this would be less given it is in her chest. She was agreeable to this and she voiced the risk and benefits back to me. The patient was then signed out to Dr. Chester for further evaluation. If the CT is negative I suspect the patient will go home. (АЛЕКСАНДР CISNEROS MD) Progress Note : Progress Note 1800--ASSUMED CARE FROM DR. CISNEROS, CT AND COVID TESTING ARE PENDING. VITALS ARE STABLE AT THIS TIME. PT IS 26 WEEKS GESTATION FHR 143. STATES NO PROBLEMS WITH THIS . PT IS AB 0-- X [address] BENZ IS NOVEMBER 14. PT IS NOT COVID VACCINATED. REVIEWED ALL TEST RESULTS WITH PATIENT, AND ADVISED HER OF POSITIVE COVID TEST, AND NEED FOR QUARANTINE ALSO DISCUSSED TREATMENT OPTIONS, INCLUDING MONOCLONAL ANTIBODY INFUSION, WHICH IS AVAILABLE. TO GIVE HERE IN ER AT THIS TIME, PHARMACY IS STILL IN HOUSE. PT OPTS TO PROCEED WITH THE MAB INFUSION. CONSENT FORM SIGNED AND ORDER SENT TO PHARMACY. NO DETERIORATION IN PT'S CONDITION DURING ER STAY (LEATHA CHESTER DO) Initial ECG Impression Date: November 09, 2021 Initial ECG Impression Time: 16:54 Initial ECG Rate: 95 Initial ECG Rhythm: Normal Sinus Comment Narrow QRS, normal axis, no significant ST changes or T wave abnormalities, PACs (АЛЕКСАНДР CISNEROS MD) Diagnostic Imaging Diagonstic Imaging: Xray Plain Films/CT/US/NM/MRI: chest Comments NAME: [facility] REC#: [id number] PT STATUS: REG ER : 2000 PHYSICIAN: АЛЕКСАНДР CISNEROS MD ADMIT DATE: 11/09/21/ER Signed Date of Exam:11/09/21 CHEST 1 VIEW, AP/PA ONLY Indication: Chest pain AP view of the chest is obtained. COMPARISON: No previous study is available for comparison at this time. FINDINGS: Heart size and pulmonary vasculature are within normal limits, and the lungs are clear, bilaterally. IMPRESSION: Unremarkable chest. Dictated by: Dictated on workstation # [id number] Dict: 11/09/21 1732 Trans: 11/09/21 1733 [id number] Interpreted by: FERMIN PHAM MD Electronically signed by: FERMIN PHAM MD 11/09/21 173 (АЛЕКСАНДР CISNEROS MD) Comments CT CHEST ANGIOGRAM--PER RADIOLOGIST REPORT AT 1818 FINDINGS: There is good opacification of pulmonary arteries. No intraluminal filling defect is identified. Thoracic aorta has a normal appearance. Residual thymus is present in the anterior mediastinum. Lungs are clear. There is no significant pleural or pericardial fluid. No pathologically enlarged adenopathy is identified. IMPRESSION: No CTA evidence of pulmonary embolism or other acute abnormality seen in the thorax. Reviewed: Reviewed by Me (LEATHA CHESTER DO) Departure Impression Primary Impression: COVID-19 virus infection Additional Impressions: Chest pain Qualified Codes: R07.82 - Intercostal pain Qualified Codes: Z3A.26 - 26 weeks gestation of PAC (premature atrial contraction) Disposition: 01 HOME, SELF-CARE Condition: Stable Departure-Patient Inst. Decision time for Depature: 18:20 (LEATHA CHESTER DO) Referrals: MESHA TATUM DO (PCP) Primary Care Physician DONIS TATUM, NELLIE (Family) Primary Care Physician DEEJAY BENZ MD Patient Instructions: COVID-19 ED, COVID-19 and (DC), Chest Pain (DC), Bebtelovimab FDA Fact Sheet Add. Discharge Instructions: LOTS OF CLEAR LIQUIDS TYLENOL 1 GRAM 4 TIMES A DAY NEEDED FOR PAIN FOLLOW UP WITH DR. BENZ AND/OR DR. TATUM IN 2 WEEKS--CALL FRIDAY MORNING TO SCHEDULE APPOINTMENT AND NOTIFY YOUR DOCTORS OF POSITIVE COVID TEST. RETURN TO ER IF SYMPTOMS WORSEN. QUARANTINE YOURSELF AND ALL HOUSEHOLD AND CLOSE CONTACTS FOR THE NEXT 10 DAYS. Work/School Note: Work Release Form Date Seen in the Emergency Department: November 09, 2021 Return to Work: Nov 21, 2021 Restrictions: No Restrictions АЛЕКСАНДР CISNEROS MD November 09, 2021 17:11 LEATHA CHESTER DO November 09, 2021 17:55
[2021-11-09 17:16] LABS: BASOPHILS % (AUTO) 0 % (0-10); EOSINOPHILS # (AUTO) 0.1 10^3/uL (0.0-0.3); EOSINOPHILS % (AUTO) 1 % (0-10); HEMATOCRIT 34 % (35-52); HEMOGLOBIN 11.4 g/dL (11.5-16.0); LYMPHOCYTES # (AUTO) 2.4 10^3/uL (1.0-4.0); LYMPHOCYTES % (AUTO) 23 % (12-44); MEAN CORPUSCULAR HEMOGLOBIN 26 pg (25-34); MEAN CORPUSCULAR HGB CONC 34 g/dL (32-36); MEAN CORPUSCULAR VOLUME 78 fL (80-99); MEAN PLATELET VOLUME 10.5 fL (9.0-12.2); MONOCYTES # (AUTO) 0.6 10^3/uL (0.0-1.0); MONOCYTES % (AUTO) 6 % (0-12); NEUTROPHILS # (AUTO) 7.4 10^3/uL (1.8-7.8); NEUTROPHILS % (AUTO) 70 % (42-75); PLATELET COUNT 173 10^3/uL (130-400); WHITE BLOOD COUNT 10.5 10^3/uL (4.3-11.0)
[2021-11-09 17:27] LABS: ALBUMIN 3.4 GM/DL (3.2-4.5)
[2021-11-09 17:28] LABS: CHLORIDE 107 MMOL/L (98-107); POTASSIUM 3.3 MMOL/L (3.6-5.0); SODIUM 137 MMOL/L (135-145)
[2021-11-09 17:30] LABS: GLUCOSE 102 MG/DL (70-105); PROTHROMBIN TIME PATIENT 13.3 SEC (12.2-14.7); TOTAL PROTEIN 6.8 GM/DL (6.4-8.2)
[2021-11-09 17:31] LABS: CARBON DIOXIDE 20 MMOL/L (21-32)
[2021-11-09 17:32] LABS: BILIRUBIN,TOTAL 0.4 MG/DL (0.1-1.0)
[2021-11-09 17:33] LABS: ALKALINE PHOSPHATASE 90 U/L (40-136)
[2021-11-09 17:34] LABS: CREATININE SERUM 0.57 MG/DL (0.60-1.30); GFR ESTIMATED 132
--- NOTE | 2021-11-09 17:34 | Diagnostic Imaging Report ---
Indication: Chest pain AP view of the chest is obtained. COMPARISON: No previous study is available for comparison at this time. FINDINGS: Heart size and pulmonary vasculature are within normal limits, and the lungs are clear, bilaterally. IMPRESSION: Unremarkable chest. Dictated by: Dictated on workstation # [id number]
[2021-11-09 17:35] LABS: BUN/CREATININE RATIO 9
[2021-11-09 17:36] LABS: ALANINE AMINOTRANSFERASE < 6 U/L (0-55); MAGNESIUM 1.6 MG/DL (1.6-2.4)
[2021-11-09] MEDS ORDERED: IOHEXOL 350 MG/ML 100 ML (OMNIPAQUE 350) VIAL IV ONE (18:00)
[2021-11-09] MEDS ORDERED: NS 100 ML (IVPB) BAG IV ONE (18:00)
[2021-11-09] MEDS ORDERED: HOLD METFORMIN - RECEIVED CONTRAST 20 ML VIAL IV SCH (18:00)
[2021-11-09] MEDS ORDERED: CATHETER FLUSH 10 ML SYR IV PRN (18:00)
--- NOTE | 2021-11-09 18:16 | Diagnostic Imaging Report ---
PROCEDURE: CT angiography of the chest with contrast. TECHNIQUE: Multiple contiguous axial images were obtained through the chest after uneventful bolus administration of intravenous contrast. 3D reconstructed CTA MIP acquisitions were also performed. Auto Exposure Controls were utilized during the CT exam to meet ALARA standards for radiation dose reduction. INDICATION: Chest pain and elevated d-dimer. FINDINGS: There is good opacification of pulmonary arteries. No intraluminal filling defect is identified. Thoracic aorta has a normal appearance. Residual thymus is present in the anterior mediastinum. Lungs are clear. There is no significant pleural or pericardial fluid. No pathologically enlarged adenopathy is identified. IMPRESSION: No CTA evidence of pulmonary embolism or other acute abnormality seen in the thorax. Dictated by: Dictated on workstation # [id number]
[2021-11-09] MEDS ORDERED: BEBTELOVIMAB 175 MG/2 ML VIAL IV ONE (19:00)
[2021-11-09] MEDS ORDERED: ONDANSETRON 4 MG/2 ML (SDV) Z0FRAN IV PRN (19:00)
[2021-11-09] MEDS ORDERED: ACETAMINOPHEN 500 MG TAB (TYLENOL) PO PRN (19:00)
[2021-11-09] MEDS ORDERED: diphenhydrAMINE 50 MG/ML INJ (BENADRYL) IV PRN (19:00)
[2021-11-09] MEDS ORDERED: EPINEPHrine INJECTION 1 MG/ML AMP IM PRN (19:00)
[2021-11-09 20:14] VITALS: BP 143/81
== END 2021-11-09 20:19 | disposition home or self-care (01) ==
LOC: EDUNIT# 16:44 → ER 16:48
DX: O98.512 Other viral diseases complicating pregnancy, second trimester (principal); U07.1 COVID-19; Z3A.26 26 weeks gestation of pregnancy
CPT/HCPCS: 36415; 71045; 71275; 80053; 83735; 83880; 84484; 85025; 85379; 85610; 85730; 87636; 93041

== ENCOUNTER → 2022-02-04 | Outpatient (CLI) | payer OTHER, MEDICAID | END | disposition home or self-care (01) | LOC: PREOP 05:29 | PROVIDERS: ATTEND Obstetrics & Gynecology | DX: Z01.818 Encounter for other preprocedural examination (principal) ==

== ENCOUNTER 2022-02-11 10:04 | Inpatient (IN) | payer OTHER, MEDICAID ==
[~2022-02-11] VITALS: Ht 170.2 cm; Wt 139.0 kg
[2022-02-11] VITALS (12 sets, daily range): BP systolic 112–142; BP diastolic 56–84
[2022-02-11] MEDS ORDERED: METOCLOPRAMIDE INJ 10 MG/2 ML (REGLAN) IV ONE (10:30)
[2022-02-11] MEDS ORDERED: LACTATED RINGERS 1,000 ML IV PRN ×2 (10:30)
[2022-02-11] MEDS ORDERED: D5 LR IV SOLUTION 1,000 ML IV SCH ×2 (10:30→13:30)
[2022-02-11] MEDS ORDERED: CITRIC ACID/SOB CIT (BICITRA) 30 ML UDC PO ONE (10:30)
[2022-02-11] MEDS ORDERED: FAMOTIDINE 20MG/2ML IV (PEPCID) IV ONE (10:30)
[2022-02-11] MEDS ORDERED: metroNIDAZOLE 500MG/100ML IVPB 100 ML IV ONE (10:30)
[2022-02-11] MEDS ORDERED: ceFAZolin INJECTION 2,000 MG in NS (IVPB) 50 ML IV NR (10:30)
[2022-02-11] MEDS ORDERED: CATHETER FLUSH 10 ML SYR IV PRN (10:30)
[2022-02-11 10:58] LABS: BASOPHILS % (AUTO) 0 % (0-10); EOSINOPHILS # (AUTO) 0.1 10^3/uL (0.0-0.3); EOSINOPHILS % (AUTO) 1 % (0-10); HEMATOCRIT 34 % (35-52); HEMOGLOBIN 11.3 g/dL (11.5-16.0); LYMPHOCYTES # (AUTO) 1.8 10^3/uL (1.0-4.0); LYMPHOCYTES % (AUTO) 19 % (12-44); MEAN CORPUSCULAR HEMOGLOBIN 26 pg (25-34); MEAN CORPUSCULAR HGB CONC 33 g/dL (32-36); MEAN CORPUSCULAR VOLUME 77 fL (80-99); MEAN PLATELET VOLUME 11.4 fL (9.0-12.2); MONOCYTES # (AUTO) 0.5 10^3/uL (0.0-1.0); MONOCYTES % (AUTO) 5 % (0-12); NEUTROPHILS % (AUTO) 74 % (42-75); PLATELET COUNT 172 10^3/uL (130-400); WHITE BLOOD COUNT 9.5 10^3/uL (4.3-11.0)
[2022-02-11] MEDS ORDERED: OXYTOCIN PRE-MIX DRIP 1,000 ML IV ONE (11:48)
[2022-02-11] MEDS ORDERED: ONDANSETRON 4 MG/2 ML (SDV) Z0FRAN ONE (11:48)
[2022-02-11] MEDS ORDERED: fentaNYL INJ 100 MCG/2 ML AMP ONE (11:49)
--- NOTE | 2022-02-11 12:16 | History & Physical ---
History and Physical Date Seen by Provider: Feb 11, 2022 Time Seen by Provider: 12:14 This patient is a 21-year-old multigravid female who presents for repeat delivery at 38+ weeks gestation due to PIH and 2 previous C-sections. She has no complaints. She denies rupture membranes or bleeding. Her GBS culture was obtained . Patient denies contractions and has no other complaints Allergies are none Medications are vitamins Medical social and surgical histories are per the antepartum record HEENT exam is normal Neck is supple no lymphadenopathy no thyromegaly Abdomen is gravid soft nontender nondistended Extremities show no clubbing or cyanosis. There is no Homans' sign. Pelvic exam is deferred Assessment and plan 38+ weeks gestation with 2 previous C-sections and PIH. Admitted now for repeat delivery 38+ weeks with PIH and previous Allergies and Home Medications Allergies Coded Allergies: No Known Drug Allergies (Unverified , 03/31/20) Patient Home Medication List Home Medication List Reviewed: Yes No Active Prescriptions or Reported DEEJAY Reeder MD Feb 11, 2022 12:16
[2022-02-11] MEDS: OXYTOCIN PRE-MIX DRIP 500 ML IV SCH ×2 (12:31→12:45)
[2022-02-11] MEDS: KETOROLAC 30 MG/ML VIAL IV SCH ×2 (12:45→19:41)
[2022-02-11] MEDS ORDERED: KETOROLAC 30 MG/ML VIAL ONE (12:49)
[2022-02-11] MEDS ORDERED: BUPIVACAINE 0.25% 30 ML (SENSORCAINE) VIAL ONE (12:49)
[2022-02-11] MEDS ORDERED: METOCLOPRAMIDE INJ 10 MG/2 ML (REGLAN) IV PRN (13:30)
[2022-02-11] MEDS ORDERED: morphine INJ 10 MG/ML 1ML (SYR OR VIAL) IVP ONE (13:30)
[2022-02-11] MEDS ORDERED: diphenhydrAMINE 50 MG/ML INJ (BENADRYL) IV PRN (13:30)
[2022-02-11] MEDS ORDERED: NALOXONE 0.4 MG/ML 1 ML (NARCAN) VIAL IV PRN ×2 (13:30)
[2022-02-11] MEDS ORDERED: fentaNYL INJ 100 MCG/2 ML AMP IVP PRN (13:30)
[2022-02-11] MEDS ORDERED: ONDANSETRON 4 MG/2 ML (SDV) Z0FRAN IVP PRN ×2 (13:30)
[2022-02-11] MEDS ORDERED: TETANUS,DIPTH,PERTUSS P/F (BOOSTRIX) 0.5 ML VIAL IM ONE (13:30)
[2022-02-11] MEDS ORDERED: ONDANSETRON 4 MG/2 ML (SDV) Z0FRAN IV PRN (13:30)
[2022-02-11] MEDS ORDERED: MEPERIDINE (DEMEROL) INJ 50 MG/ML IVP ONE (13:30)
--- NOTE | 2022-02-11 15:40 | OPERATIVE REPORT ---
DATE OF SERVICE: 02/11/2022 PREOPERATIVE DIAGNOSES: A 38+ weeks' gestation with PIH and two previous C-sections. POSTOPERATIVE DIAGNOSES: A 38+ weeks' gestation with PIH and two previous C-sections. OPERATIVE PROCEDURE: Repeat low transverse delivery of a viable male with Apgars of 7 and 9 at 1 and 5 minutes respectively, weight of 7 pounds 3 ounces, time of 1231 and a cord blood pH of 7.3. OPERATIVE DESCRIPTION: With the patient in the supine position under satisfactory spinal analgesia, the patient was prepped and draped in the usual fashion for abdominal surgery. Saenz catheter was placed in the urinary bladder. Repeat Pfannenstiel incision made through skin with scalpel, the patient's abdomen was entered in the usual manner. Bladder retractor was placed in position. Clean scalpel was used to make a 4 cm hysterotomy incision transversely across the lower uterine segment. Copious clear fluid was released on hysterotomy. The incision was extended bluntly. Linder forceps were applied to facilitate the delivery of a vigorous viable male infant with Apgars and stats as noted above. Using forceps to allow for decrease pressure on the abdomen to accomplish the delivery. The was bulb suctioned on delivery of the head and again on completion of delivery. Umbilical cord was doubly clamped, umbilical cord was then cut and the infant passed to the pediatric nurse in attendance for delivery. Cord bloods were obtained. The placenta delivered spontaneously Cadet. It was normal with a 3-vessel cord. It was sent to pathology for permanent section. The uterus was exteriorized and interior wiped clean with a wet laparotomy sponge. Uterine incision then closed with running locked suture of 2-0 Vicryl. Hemostasis was complete. The uterus was returned to abdominal cavity. All blood clot and debris was removed from the abdominal cavity. Sponge and needle counts correct, hemostasis assured. The anterior parietal peritoneum was closed with running suture of 2-0 Vicryl. Rectus muscles were closed with that suture as well. The rectus fascia was closed with 2-0 Vicryl, subcutaneous tissue was closed with 2-0 Vicryl and the skin was stapled. Sponge and needle counts were correct on completion of the procedure. Blood loss was around 400 mL. The patient tolerated the procedure well and remained in the OR and transferred to the recovery room. The remained with the mom. Job ID: [id number] DocumentID: [id number] Dictated Date: 02/11/2022 13:34:10 [employer] Date: 02/11/2022 15:39:38 Dictated By: DEEJAY BENZ MD MTDD
[2022-02-11] MEDS: oxyCODONE/APAP 10/325MG (PERCOCET 10) TABLET PO PRN ×3 (15:44→21:43)
[2022-02-11] MEDS: DOCUSATE SODIUM 100 MG (COLACE) CAP PO SCH (20:32)
[2022-02-12] VITALS (7 sets, daily range): BP systolic 113–136; BP diastolic 56–78
[2022-02-12] MEDS: KETOROLAC 30 MG/ML VIAL IV SCH (01:57)
[2022-02-12] MEDS: oxyCODONE/APAP 10/325MG (PERCOCET 10) TABLET PO PRN ×2 (05:36→14:53)
--- NOTE | 2022-02-12 07:39 | Progress Note ---
Standard Progress Note Progress Notes/Assess & Plan Date Seen by a Provider: Feb 12, 2022 Time Seen by a Provider: 07:38 Progress/Assessment & Plan This patient is without complaint. She is ambulating, voiding, tolerating oral intake well has good pain control. Vital Signs Date Time Temp Pulse Resp B/P (MAP) Pulse Ox O2 Delivery O2 Flow Rate FiO2 02/12/22 05:06 35.9 59 16 115/60 (78) 99 Room Air 02/12/22 01:42 61 18 113/69 (84) 99 Room Air 02/12/22 00:11 35.7 59 16 136/59 (84) 99 Room Air 02/11/22 20:46 36.0 63 16 118/56 (76) 98 Room Air 02/11/22 15:12 36.3 65 18 131/71 (91) 99 Room Air 02/11/22 14:45 Room Air 02/11/22 13:51 Room Air 02/11/22 13:45 35.9 18 132/70 (90) 98 Room Air 02/11/22 13:45 Room Air 02/11/22 13:30 Room Air 02/11/22 13:30 36.2 18 119/65 (83) 99 Room Air 02/11/22 13:15 Room Air 02/11/22 13:15 36.2 18 112/72 (85) 99 Room Air 02/11/22 13:00 18 115/61 (79) 99 Room Air 02/11/22 12:53 Room Air 02/11/22 11:48 89 18 132/84 (100) 98 Room Air 02/11/22 11:18 81 18 142/79 (100) 99 Room Air 02/11/22 11:09 36.5 84 18 97 Room Air 02/11/22 11:00 81 18 123/77 (92) 99 Room Air 02/11/22 10:48 80 18 121/78 (92) 98 Room Air I & O 02/12/22 07:00 Intake Total 4900 ml Output Total 1350 ml Balance 3550 ml Vital signs are stable. Patient is afebrile. Fundus is firm below the umbilicus and nontender Extremities show no clubbing cyanosis. No Homans' sign. Assessment and plan Postoperative day #1 status post repeat delivery at 38 weeks gestation. Patient is doing well will have routine convalescent care DEMAR,DEEJAY G MD Feb 12, 2022 07:39
[2022-02-12] MEDS: DOCUSATE SODIUM 100 MG (COLACE) CAP PO SCH ×3 (07:43→20:18)
[2022-02-12] MEDS: IBUPROFEN 800 MG (MOTRIN) TAB PO SCH ×3 (07:43→20:19)
[2022-02-12] MEDS ORDERED: DOCU100C37 PO (08:30)
[2022-02-12] MEDS ORDERED: IBUP-1780 PO (08:30)
[2022-02-12] MEDS ORDERED: OXYC1TAB12 PO (08:30)
--- NOTE | 2022-02-12 08:32 | Discharge Inst-Surgical ---
Discharge Inst-Surgical Depart Medication/Instructions New, Converted or Re-Newed RX: Transmitted to Pharmacy Consults/Follow Up Patient Instructions: As directed Orders & Referrals Follow Up Appt: RTC 1 week for incision check. Call to make follow up appt. for patient in 4 weeks. Wound Care: Remove zina, apply benzoin and steri strips. Activity Per routine post instructions. Diet as tolerated Patient may shower or tub bathe as desired. Continue home meds Activity Activity as Tolerated: No Diet Discharge Diet: No Restrictions DEEJAY BENZ MD Feb 12, 2022 08:32
[2022-02-12] MEDS ORDERED: IBUPROFEN 800 MG (MOTRIN) TAB PO SCH (13:30)
[2022-02-12] MEDS: SIMETHICONE 80 MG (MYLICON) CHEW PO PRN (18:28)
[2022-02-13] MEDS: oxyCODONE/APAP 10/325MG (PERCOCET 10) TABLET PO PRN ×2 (01:16→12:02)
[2022-02-13] MEDS: SIMETHICONE 80 MG (MYLICON) CHEW PO PRN ×2 (02:01→10:25)
[2022-02-13] MEDS: IBUPROFEN 800 MG (MOTRIN) TAB PO SCH ×3 (02:01→14:00)
[2022-02-13 02:02] VITALS: BP 157/99
[2022-02-13 02:45] VITALS: BP 111/52
--- NOTE | 2022-02-13 07:56 | Progress Note ---
Standard Progress Note Progress Notes/Assess & Plan Date Seen by a Provider: Feb 13, 2022 Time Seen by a Provider: 07:55 Progress/Assessment & Plan This patient is without complaint. She is ambulating, voiding, tolerating oral intake well has good pain control. Vital Signs Date Time Temp Pulse Resp B/P (MAP) Pulse Ox O2 Delivery O2 Flow Rate FiO2 02/12/22 05:06 35.9 59 16 115/60 (78) 99 Room Air 02/12/22 01:42 61 18 113/69 (84) 99 Room Air 02/12/22 00:11 35.7 59 16 136/59 (84) 99 Room Air 02/11/22 20:46 36.0 63 16 118/56 (76) 98 Room Air 02/11/22 15:12 36.3 65 18 131/71 (91) 99 Room Air 02/11/22 14:45 Room Air 02/11/22 13:51 Room Air 02/11/22 13:45 35.9 18 132/70 (90) 98 Room Air 02/11/22 13:45 Room Air 02/11/22 13:30 Room Air 02/11/22 13:30 36.2 18 119/65 (83) 99 Room Air 02/11/22 13:15 Room Air 02/11/22 13:15 36.2 18 112/72 (85) 99 Room Air 02/11/22 13:00 18 115/61 (79) 99 Room Air 02/11/22 12:53 Room Air 02/11/22 11:48 89 18 132/84 (100) 98 Room Air 02/11/22 11:18 81 18 142/79 (100) 99 Room Air 02/11/22 11:09 36.5 84 18 97 Room Air 02/11/22 11:00 81 18 123/77 (92) 99 Room Air 02/11/22 10:48 80 18 121/78 (92) 98 Room Air I & O 02/12/22 07:00 Intake Total 4900 ml Output Total 1350 ml Balance 3550 ml Vital signs are stable. Patient is afebrile. Fundus is firm below the umbilicus and nontender Extremities show no clubbing cyanosis. No Homans' sign. Assessment and plan Postoperative day #1 status post repeat delivery at 38 weeks gestation. Patient is doing well will have routine convalescent care February 13, 2022 Patient is without complaint. She is ambulating, voiding, tolerating oral intake and has good pain control. Vital Signs Date Time Temp Pulse Resp B/P (MAP) Pulse Ox O2 Delivery O2 Flow Rate FiO2 02/13/22 02:45 111/52 (71) 02/13/22 02:02 36.4 74 18 157/99 (118) 96 Room Air 02/12/22 20:20 36.0 68 18 123/75 (91) 98 Room Air 02/12/22 15:30 35.9 66 14 135/78 (97) 98 Room Air 02/12/22 12:00 36.4 61 18 124/56 (78) 99 Room Air 02/12/22 08:00 36.5 55 16 123/59 (80) 100 Room Air Vital signs are stable. Patient is afebrile. The abdomen is benign. The fundus is firm below the umbilicus and nontender. The surgical incision is clean dry and intact. Extremities show no clubbing cyanosis. There is no Homans' sign. Assessment and plan Postoperative day #2 status post repeat delivery doing well. Plans for discharge home today or tomorrow as patient prefers Final Diagnosis 38-week repeat delivery DEEJAY BENZ MD Feb 13, 2022 07:56
[2022-02-13 08:08] VITALS: BP 129/63
--- NOTE | 2022-02-13 14:32 | Anesthesia-Regional Post-Op ---
Regional Patient Condition Mental Status: Alert, Oriented x3 Circulation: Same as Pre-Op Headache: Absent Sensation: Full Recovery Motor Block: Absent Post Op Complications Complications None Follow Up Care/Instructions Patient Instructions None needed. Anesthesia/Patient Condition Patient was just discharged to home prior to my arrival for rounds. Nursing states she was doing well, no complaints, stable vital signs, no apparent adverse anesthesia problems. No complications reported per nursing. GRECIA PEREZ DO Feb 13, 2022 14:32
== END 2022-02-13 14:00 | disposition home or self-care (01) | DRG 788 ==
LOC: LDRP 10:04
PROVIDERS: ADMIT Obstetrics & Gynecology; ATTEND Obstetrics & Gynecology
PROC: 10D00Z1 Extraction of Products of Conception, Low, Open Approach (ICD-10-PCS; principal; 2022-02-11 12:07)
DX: O34.211 Maternal care for low transverse scar from previous cesarean delivery (principal); Z3A.38 38 weeks gestation of pregnancy; Z37.0 Single live birth; O13.4 Gestational [pregnancy-induced] hypertension without significant proteinuria, complicating childbirth
CPT/HCPCS: 36415; 85025; 86850; 86900; 86901; 94664

== ENCOUNTER → 2023-04-23 | Outpatient (CLI) | payer OTHER ==
--- NOTE | 2023-04-23 17:14 | Diagnostic Imaging Report ---
EXAMINATION: US Thyroid. TECHNIQUE: Multiple real-time grayscale images were obtained of the thyroid in various projections. HISTORY: Iodine deficiency COMPARISON: None available. FINDINGS: The right lobe of the thyroid measures 4.0 x 1.5 x 1.3 cm. The left lobe of the thyroid measures 4.4 x 1.2 x 1.3 cm. The isthmus measures 0.3 cm. The size and echogenicity of the thyroid is normal. There are no nodules. There are small cysts in the thyroid. IMPRESSION: 1. Normal thyroid gland. Dictated by: Dictated on workstation # [id number]
== END ==
LOC: RAD 13:20
PROVIDERS: ATTEND Nurse Practitioner Family
DX: E01.8 Other iodine-deficiency related thyroid disorders and allied conditions (principal)
CPT/HCPCS: 76536